=== PATIENT | male | born 1990 | race Caucasian/White ===

== ENCOUNTER 2018-02-02 19:59 | Emergency (ER) | payer OTHER ==
[2018-02-02 20:27] VITALS: RESP 18
[2018-02-02] MEDS ORDERED: SODIUM CHLORIDE 0.9% 500 ML IV ONE (21:29)
[2018-02-02] MEDS ORDERED: FAMOTIDINE 20 MG/2 ML VIAL IV STA (21:29)
[2018-02-02] MEDS ORDERED: methylPREDNISolone SOD SUCCI 125 MG/2 ML VIAL IV STA (21:29)
[2018-02-02] MEDS ORDERED: diphenhydrAMINE 50 MG/ML 1 ML VIAL IVP STA (21:29)
--- NOTE | 2018-02-02 21:33 | ED ---
Allergic Reaction HPI - General Chief complaint: Allergic Reaction Stated complaint: Stung by multiple bees Time Seen by Provider: 02/02/18 21:25 Source: patient, RN notes reviewed Mode of arrival: ambulatory Limitations: no limitations - History of Present Illness Initial Comments: This a 27-year-old male presents emergency Department chief complaint of ALLERGIC reaction. Patient states that he was stung multiple times in his legs by bees from a ground height. Patient states his happened approximately 2 hours ago he has not taken any medications for it. He denies any difficulty swallowing, difficulty breathing or any abnormal sensation of his throat. Patient states he is itchy all over he has hives on his back, armpit region. Patient states she's never had a reaction like this but he states never been stung this many times. - Related Data Home Medications Medication Instructions Recorded Confirmed No Known Home Medications 02/02/18 02/02/18 Allergies Allergy/AdvReac Type Severity Reaction Status Date / Time No Known Allergies Allergy Verified 02/02/18 20:27 Review of Systems ROS Statement: Those systems with pertinent positive or pertinent negative responses have been documented in the HPI. ROS Other: All systems not noted in ROS Statement are negative. Past Medical History Past Medical History: No Reported History History of Any Multi-Drug Resistant Organisms: None Reported Past Surgical History: No Surgical Hx Reported Past Psychological History: No Psychological Hx Reported Smoking Status: Current every day smoker Past Alcohol Use History: None Reported Past Drug Use History: Marijuana General Exam Limitations: no limitations General appearance: alert, in no apparent distress Head exam: Present: atraumatic, normocephalic, normal inspection Eye exam: Present: normal appearance, PERRL, EOMI. Absent: scleral icterus, conjunctival injection, periorbital swelling ENT exam: Present: normal exam, normal oropharynx, mucous membranes moist, TM's normal bilaterally Neck exam: Present: normal inspection, full ROM. Absent: tenderness, meningismus, lymphadenopathy Respiratory exam: Present: normal lung sounds bilaterally. Absent: respiratory distress, wheezes, rales, rhonchi, stridor Cardiovascular Exam: Present: regular rate, normal rhythm, normal heart sounds. Absent: systolic murmur, diastolic murmur, rubs, gallop, clicks Skin exam: Present: warm, dry, intact, normal color, urticaria. Absent: rash Course Vital Signs 02/02/18 20:24 Temperature 98.7 F Pulse Rate 82 Respiratory 18 Rate Blood Pressure 136/88 O2 Sat by Pulse 96 Oximetry Medical Decision Making - Medical Decision Making 27-year-old male presented for ALLERGIC reaction. Patient multiple bee stings. Patient had a mild reaction he was given supplemental, Benadryl and Pepcid and symptoms are resolving. Patient will continue Benadryl for the next 24 hours then as needed after. Disposition Clinical Impression: Allergic reaction to insect sting Disposition: HOME SELF-CARE Condition: Stable Instructions: General Allergic Reaction (ED) Additional Instructions: Please return to the Emergency Department if symptoms worsen or any other concerns. Continue Benadryl 50 mg every 6 hours as directed. Is patient prescribed a controlled substance at d/c from ED?: No Referrals: Wilberto Luna DO [Primary Care Provider] - 1-2 days Time of Disposition: 22:23
[2018-02-02] MEDS ORDERED: KETOROLAC 30 MG/ML 1 ML VIAL IVP STA (22:41)
[2018-02-02 22:58] VITALS: BP 151/86; PULSE 69; TEMP 97.8
== END 2018-02-02 22:58 | disposition home or self-care (01) ==
LOC: EC 19:59
DX: T63.441A Toxic effect of venom of bees, accidental (unintentional), initial encounter (principal); F17.200 Nicotine dependence, unspecified, uncomplicated
CPT/HCPCS: 99283; 96374; 96375 ×3; 96361; J1200; J2930; J1885

== ENCOUNTER 2025-01-05 09:41 | Emergency (ER) | payer OTHER ==
[2025-01-05 09:47] VITALS: BP 132/88; PULSE 88; RESP 18; TEMP 98
[2025-01-05] MEDS: DIPH,PERTUS(ACELL)TETVAC-LF 0.5 ML VIAL IM ONE (11:09)
[2025-01-05] MEDS: TOPICAL SKIN ADHESIVE 1 EACH AMP TOPICAL ONE (11:56)
--- NOTE | 2025-01-05 12:08 | ED ---
Wound/Laceration HPI - General Chief Complaint: Wound/Laceration Stated Complaint: R hand laceration Time Seen by Provider: 01/05/25 10:25 Source: patient Mode of arrival: ambulatory Limitations: no limitations - History of Present Illness Initial Comments: The patient is a 34-year-old male who is otherwise healthy presents to the emergency room with complaints of a superficial laceration to the right hand. Patient was trying to burn some boxes and pushed down on a metal fire pit cutting his hand. He is unsure if his tetanus is up-to-date. There is minimal bleeding at this time. - Related Data Home Medications Medication Instructions Recorded Confirmed No Known Home Medications 02/02/18 02/02/18 Allergies Allergy/AdvReac Type Severity Reaction Status Date / Time No Known Allergies Allergy Verified 01/05/25 09:47 Review of Systems ROS Statement: Those systems with pertinent positive or pertinent negative responses have been documented in the HPI. ROS Other: All systems not noted in ROS Statement are negative. Past Medical History Past Medical History: No Reported History History of Any Multi-Drug Resistant Organisms: None Reported Past Surgical History: No Surgical Hx Reported Past Psychological History: No Psychological Hx Reported Smoking Status: Vaper Past Alcohol Use History: None Reported Past Drug Use History: Marijuana General Exam - General Exam Comments Initial Comments: Superficial linear laceration of the right thenar eminence. Minimal bleeding, no significant contused tissue no ecchymosis no surrounding erythema. Normal range of motion of the hand and fingers Limitations: no limitations General appearance: alert Head exam: Present: atraumatic Extremities exam: Present: normal inspection, full ROM Skin exam: Present: warm (2cm superficial laceration right thenar eminence. no ) Course Vital Signs 01/05/25 09:44 Temperature 98 F Pulse Rate 88 Respiratory 18 Rate Blood Pressure 132/88 O2 Sat by Pulse 98 Oximetry - Reevaluation(s) Reevaluation #1: 01/05/25 1225 Wound had been soaked in saline and Betadine and remained superficial. Minimal bleeding at this time. Patient was dermabonded in the emergency room by myself. 5-minute procedure. Patient's tetanus was updated today. Discussed further management at home. Procedures - Laceration Laceration #1 Consent Obtained: verbal consent Indication: laceration Site: hand Size (cm): 2 Description: linear Additional Comments: soaked in saline and betadine. wound remained superficial. was dermabonded. Medical Decision Making - Medical Decision Making Was pt. sent in by a medical professional or institution ([facility], [employer], urgent care, hospital, or detention...) When possible be specific @ -[No] Did you speak to anyone other than the patient for history (EMS, parent, family, police, friend...)? What history was obtained from this source @ -[No] Did you review nursing and triage notes (agree or disagree)? Why? @ -[I reviewed and agree with nursing and triage notes] Were old charts reviewed (outside hosp., previous admission, EMS record, old EK G, old radiological studies, urgent care reports/EKG's, detention records)? Report findings @ -[No old charts were reviewed] Differential Diagnosis (chest pain, altered mental status, abdominal pain women, abdominal pain men, vaginal bleeding, weakness, fever, dyspnea, syncope, headache, dizziness, GI bleed, back pain, seizure, CVA, palpatations, mental health, musculoskeletal)? @ -Laceration of the right hand EKG interpreted by me (3pts min.). @ -[As above] X-rays interpreted by me (1pt min.). @ -[None done] CT interpreted by me (1pt min.). @ -[None done] U/S interpreted by me (1pt. min.). @ -[None done] What testing was considered but not performed or refused? (CT, X-rays, U/S, labs)? Why? @ -[None] What meds were considered but not given or refused? Why? @ -[None] Did you discuss the management of the patient with other professionals (professionals i.e. [facility], [employer] [employer], lab, RT, psych nurse, social work faculty member, laser cutter, teacher, chief marketing officer, disease case manager rn)? Give summary @ -[No] Was smoking cessation discussed for >3mins.? @ -[No] Was critical care preformed (if so, how long)? @ -[No] Were there social determinants of health that impacted care today? How? (Homelessness, low income, unemployed, alcoholism, drug addiction, transportation, low edu. Level, literacy, decrease access to med. care, fci, rehab)? @ -[No] Was there de-escalation of care discussed even if they declined (Discuss DNR or withdrawal of care, Hospice)? DNR status @ -[No] What co-morbidities impacted this encounter? (DM, HTN, Smoking, COPD, CAD, Cancer, CVA, ARF, Chemo, Hep., AIDS, mental health diagnosis, sleep apnea, morbid obesity)? @ -[None] Was patient admitted / discharged? Hospital course, mention meds given and route, prescriptions, significant lab abnormalities, going to OR and other pertinent info. @ -Patient stable and was discharged home. May follow-up as an outpatient as needed. Undiagnosed new problem with uncertain prognosis? @ -[No] Drug Therapy requiring intensive monitoring for toxicity (Heparin, Nitro, Insulin, Cardizem)? @ -[No] Were any procedures done? @ -Superficial laceration repair was done. Patient had Dermabond applied to the superficial laceration by myself. Total procedure time 5 minutes Diagnosis/symptom? @ -Superficial laceration at the right thenar eminence, tetanus vaccination Acute, or Chronic, or Acute on Chronic? @ -Acute Uncomplicated (without systemic symptoms) or Complicated (systemic symptoms)? @ -[default] Side effects of treatment? @ -[No] Exacerbation, Progression, or Severe Exacerbation? @ -[No] Poses a threat to life or bodily function? How? (Chest pain, [place], [place], pneumonia, PE, COPD, DKA, ARF, appy, cholecystitis, CVA, Diverticulitis, Homicidal, Suicidal, threat to staff... and all critical care pts) @ -[No] Disposition Clinical Impression: Tetanus toxoid vaccination administered at current visit, Superficial laceration of right hand Disposition: HOME SELF-CARE Condition: Good Is patient prescribed a controlled substance at d/c from ED?: No When asked, does pt state using other controlled substances?: No If prescribed controlled substance>3 days was MAPS reviewed?: No If opioid is for acute pain is fill amount 7 days or less?: No If Rx opioid, was Start Talking consent form obtained?: No Referrals: None,Stated [Primary Care Provider] - 1-2 days Time of Disposition: 12:08
== END 2025-01-05 12:34 | disposition home or self-care (01) ==
LOC: EC 09:41
DX: S61.411A Laceration without foreign body of right hand, initial encounter (principal); F17.290 Nicotine dependence, other tobacco product, uncomplicated; Z23 Encounter for immunization; W22.8XXA Striking against or struck by other objects, initial encounter
CPT/HCPCS: 12001; 90471; 90715; 99282